=== PATIENT | female | born 1995 | race Caucasian/White ===

== ENCOUNTER 2018-07-22 16:46 | Emergency (ER) | payer OTHER ==
[~2018-07-22] VITALS: Ht 157.5 cm; Wt 104.3 kg
[2018-07-22 17:34] VITALS: BP 136/71
--- NOTE | 2018-07-22 18:42 | NUR ---
PT. CAME IN WITH FAMILY DUE TO CPX 3 DAYS AGO AND COUGH EXACERBATION X 1 DAY. PT. STATES " WE ARE ALL HERE FOR THE SAME THING, BECAUSE THEIR IS MOLD IN OUR APARTMENT FOR ABOUT A MONTH AND ABOUT 3 DAYS AGO WE STARTED WITH SYMPTOMS". DENIES ANY N/V/D. RR EVEN AND UNLABORED. LS: CLEAR BILAT. 5/10 STERNAL NON RADIATING CHEST PAIN THAT IS CONSTANT X 3 DAYS. NO DISTRESS NOTED AT THIS TIME. NO SOB AT THIS TIME. ER MD MADE AWARE. SAFETY PRECAUTIONS IMPLEMENTED. WILL CONTINUE TO MONITOR.
--- NOTE | 2018-07-22 19:16 | NUR ---
Pt report given to LEONARDO PERRIN . Transfer of care at this time.
[2018-07-22 19:25] VITALS: BP 130/70
--- NOTE | 2018-07-22 19:25 | NUR ---
Patient discharged with v/s stable. Written and verbal after care instructions given and explained. Patient alert, oriented and verbalized understanding of instructions. Ambulatory with steady gait. All questions addressed prior to discharge. ID band removed. Patient advised to follow up with PMD. Rx of LORATIDINE given. Patient educated on indication of medication including possible reaction and side effects. Opportunity to ask questions provided and answered.
== END 2018-07-22 19:25 | disposition home or self-care (01) ==
LOC: MED 16:46
DX: J02.9 Acute pharyngitis, unspecified (principal); H65.93 Unspecified nonsuppurative otitis media, bilateral
CPT/HCPCS: 99283